=== PATIENT | male | born 1990 ===

== ENCOUNTER 2016-11-21 12:30 | Inpatient (IN) | payer OTHER ==
[2016-11-22 00:07] VITALS: BMI 53.0
--- NOTE | 2016-11-22 08:43 | CP.PCM.CON ---
History of Present Illness - History of Present Illness History of Present Illness: Full Note Dictated Severe Hypertension Obesity See Rx Dietary counselling for weight loss/low salt diet Echo to mildred DE LEON Past Patient History - Past Medical History & Family History Past Medical History?: No - Past Social History Smoking Status: Never Smoked - CARDIAC Hx Cardiac Disorders: No - PULMONARY Hx Respiratory Disorders: No - NEUROLOGICAL Hx Neurological Disorder: No - HEENT Hx HEENT Problems: No - RENAL Hx Chronic Kidney Disease: No - ENDOCRINE/METABOLIC Hx Endocrine Disorders: No - HEMATOLOGICAL/ONCOLOGICAL Hx Blood Disorders: No Hx AIDS: No Hx Human Immunodeficiency Virus (HIV): No - INTEGUMENTARY Hx Dermatological Problems: No - MUSCULOSKELETAL/RHEUMATOLOGICAL Hx Musculoskeletal Disorders: No Hx Falls: No - GASTROINTESTINAL Hx Gastrointestinal Disorders: No - GENITOURINARY/GYNECOLOGICAL Hx Genitourinary Disorders: No - PSYCHIATRIC Hx Psychophysiologic Disorder: No Hx Substance Use: No - SURGICAL HISTORY Hx Surgeries: No - ANESTHESIA Hx Anesthesia: No Meds Allergies/Adverse Reactions: Allergies Allergy/AdvReac Type Severity Reaction Status Date / Time No Known Allergies Allergy Verified 09/30/14 14:29 - Medications Medications: Current Medications Amlodipine Besylate (Norvasc) 5 mg PO DAILY DAVID Enoxaparin Sodium (Lovenox) 40 mg SC DAILY DAVID PRN Reason: Protocol Results - Vital Signs Recent Vital Signs: Last Vital Signs Temp 97.9 F 11/22/16 08:29 Pulse 80 11/22/16 08:29 Resp 20 11/22/16 08:29 BP 132/84 11/22/16 08:29 Pulse Ox 95 11/22/16 08:29 - Labs Labs: Laboratory Results - last 24 hr 11/22/16 05:40 Troponin I 0.0400
--- NOTE | 2016-11-22 09:49 | CON ---
DATE: 11/22/2016 He is hospitalized under Dr. Haskins's care in room 416, bed 2. This 26-year-old man complained of an abrupt onset of blurry vision and lightheadedness, was brought to the Emergency Room and was found to be severely hypertensive. He denies any prior knowledge of hy pertension, but knows that his father is a hypertensive and the patient has put on approximately 70 p ounds in last 3 years. He is not a smoker or a diabetic, has good effort tolerance and can walk 8-10 blocks without any difficulty and can climb a couple of flights of stairs, has no prior hospitalizat ion, has never taken medications, has never complained of any shortness of breath with exertion, has never complained of any chest pain, has never complained of any palpitations. He denies excessive sa lt loading. He denies any prior kidney-related illnesses. His father does not have renal failure or chronic kidney disease. PHYSICAL EXAMINATION: GENERAL: Shows a markedly overweight, young man, alert, awake, coherent, in no distress at the time of this examination. VITAL SIGNS: Afebrile, has a heart rate of 78 beats per minute, regular, and a blood pressure of 180 /114 mmHg. His jugular venous pressure was not elevated. EXTREMITIES: There was no edema of his lower extremities. The pedal pulses were well felt. NECK: There were no carotid bruits. ABDOMEN: There were no abdominal bruits. Soft. His liver and spleen were not palpable. HEART: The apex was not palpable. The first and second heart sounds were normal. There was no murm ur or gallop. LUNGS: There were no rales. His electrocardiogram showed sinus rhythm with a pattern of left ventricular hypertrophy. No Q-waves were detected on his electrocardiogram. The only blood test available is his troponin, which was wi thin normal limits. IMPRESSION: At this time is severe hypertension with obesity. I have explained to the patient the c onnection between hypertension and obesity and the need to lose weight. Dietary counseling will be o rdered regarding weight loss diet and low salt diet. I have started him on an SRUTHI inhibitor and hydr ochlorothiazide along with amlodipine. An echocardiogram to evaluate his left ventricular systolic f unction would be important as well as urinalysis for albumin in the urine. Amilcar Levin MD cc: [phone] TT: 11/22/2016 09:48:08 Confirmation # [id number] Dictation # [id number] en
[2016-11-22 10:56] LABS: THYROID STIMULATING HORMONE 3.98 mIU/ML (0.46-4.68)
[2016-11-22 11:06] LABS: BASO # 0.1 K/uL (0.0-0.2); BASO % 0.9 % (0.0-2.0); EOS # 0.2 K/uL (0.0-0.7); EOS % 3.1 % (0.0-4.0); HEMATOCRIT 44.1 % (35.0-51.0); LYMPH # 2.4 K/uL (1.0-4.3); LYMPH % 31.3 % (20.0-40.0); MEAN CELL VOLUME 81.4 fl (80.0-94.0); MEAN CORPUSCULAR HEMOGLOBIN 26.9 pg (27.0-31.0); MEAN CORPUSCULAR HGB CONC 33.1 g/dL (33.0-37.0); MONO # 0.5 K/uL (0.0-0.8); MONO % 6.5 % (0.0-10.0); NEUT # 4.5 K/uL (1.8-7.0); NEUT % 58.2 % (50.0-75.0); NRBC % 0.1 % (0.0-0.0); RED CELL DISTRIBUTION WIDTH 14.7 % (11.5-14.5); WHITE BLOOD COUNT 7.7 K/uL (4.8-10.8)
[2016-11-22 11:58] LABS: BLOOD UREA NITROGEN 13 mg/dl (9-20); GFR AFRICAN-AMERICAN > 60; GLUCOSE,RANDOM 104 mg/dL (75-110)
[2016-11-22 11:59] LABS: ALB/GLOB RATIO 1.3 (1.0-2.1); ALKALINE PHOSPHATASE 70 U/L (38-126); ALT/SGPT 133 U/L (21-72); AST/SGOT 98 U/L (17-59); BILIRUBIN,TOTAL 0.8 mg/dl (0.2-1.3); CALCIUM 9.4 mg/dL (8.4-10.2); CARBON DIOXIDE 28 mmol/L (22-30); CHLORIDE 104 mmol/L (98-107); POTASSIUM 3.6 MMOL/L (3.6-5.0); SODIUM 145 mmol/l (132-148); TOTAL PROTEIN 8.6 G/DL (6.3-8.2)
--- NOTE | 2016-11-22 12:06 | HP ---
CHIEF COMPLAINT: Dizziness. HISTORY OF PRESENT ILLNESS: This is a 26-year-old male, known case of morbid obesity and severe hype rtension who was to the hospital and suddenly felt dizzy and almost passed out, so went to [facility] Room and was admitted for further management. REVIEW OF SYSTEMS: Positive for dizziness and almost passing out. Review of systems otherwise negat afia for headache, chest pain, shortness of breath, nausea, vomiting, diarrhea, constipation, any new joint or extremity pain. Review of systems of all other organ systems is unremarkable. PAST MEDICAL HISTORY: Significant for morbid obesity and hypertension. PAST SURGICAL HISTORY: Unremarkable. PERSONAL HISTORY: The patient is currently a nonsmoker, nondrinker, no substance abuse. MEDICATIONS: The patient is on multiple medications, which is as per reconciliation sheet, which was reviewed in order. ALLERGIES: The patient is not allergic to any medication. FAMILY HISTORY: Noncontributory. PHYSICAL EXAMINATION: GENERAL: Well-built, well-nourished, morbidly obese 36-year-old man with a BMI of 53 in no acute dis tress. VITAL SIGNS: Temperature 97.9, pulse 80, respiration 20, blood pressure 132/84, blood pressure used to be 179/119, yesterday. HEENT: The patient is wearing glasses. No JVD, no thyromegaly, no lymphadenopathy, no nystagmus. N ormocephalic, atraumatic skull. HEART: S1, S2 normal, regular. No significant murmur, gallop or rub is heard. LUNGS: Shows good bilateral air entry. No rales or rhonchi. ABDOMEN: Soft, nontender, no organomegaly, no fluid. Bowel sounds are present. EXTREMITIES: No edema, no calf swelling, no tenderness. No acute ischemia. CENTRAL NERVOUS SYSTEM: The patient is alert, awake, oriented x 3. There is no sign of any acute gr oss focal motor or sensory neurological deficit. DIAGNOSTIC DATA: Available diagnostic data reviewed. EKG does not reveal any acute ST-T changes. Cardiology consult noted and appreciated. Telemetry monitoring does not reveal significant arrhythmi as. ADMITTING IMPRESSION: Syncope, uncontrolled severe hypertension, morbid obesity. PLAN: As ordered. Case and plan discussed with patient. Willem Haskins MD cc: [phone] TT: 11/22/2016 12:06:13 jn
[2016-11-22] MEDS: Enoxaparin 40 mg Syringe SC SCH (12:31)
--- NOTE | 2016-11-22 14:19 | CT ---
PROCEDURE: CT HEAD WITHOUT CONTRAST. HISTORY: Dizziness COMPARISON: None available. TECHNIQUE: Axial computed tomography images were obtained through the head/brain without intravenous contrast. Radiation dose: Total exam DLP = 1095.06 mGy-cm. This CT exam was performed using one or more of the following dose reduction techniques: Automated exposure control, adjustment of the mA and/or kV according to patient size, and/or use of iterative reconstruction technique. FINDINGS: HEMORRHAGE: No intracranial hemorrhage. BRAIN: No mass effect or edema. No atrophy or chronic microvascular ischemic changes. VENTRICLES: Unremarkable. No hydrocephalus. CALVARIUM: Unremarkable. PARANASAL SINUSES: Unremarkable as visualized. No significant inflammatory changes. MASTOID AIR CELLS: Unremarkable as visualized. No inflammatory changes. OTHER FINDINGS: None. IMPRESSION: Normal CT of the Head. No intracranial mass, hemorrhage or evidence of acute infarct.
--- NOTE | 2016-11-22 15:08 | CARD ---
APPROVED REPORT EXAM: Two-dimensional and M-mode echocardiogram with Doppler, color Doppler with contrast. Other Information Quality : GoodRhythm : NSR INDICATION Hypertension/HCVD Echo Enhancing Agent Indication: Endocardial border delineation Agent/Amount Used: Definity 2D DIMENSIONS IVSd1.30 (0.7-1.1cm)LVDd6.18 (3.9-5.9cm) LVOT Diameter2.73 (1.8-2.4cm)PWd1.22 (0.7-1.1cm) IVSs1.71 (0.8-1.2cm)LVDs4.89 (2.5-4.0cm) FS (%) 20.9 %PWs1.62 (0.8-1.2cm) LVEF (%)40.0 (>50%) M-Mode DIMENSIONS Left Atrium (MM)3.09 (2.5-4.0cm)IVSd1.97 (0.7-1.1cm) Aortic Root3.38 (2.2-3.7cm)LVDd5.47 (4.0-5.6cm) Aortic Cusp Exc.2.34 (1.5-2.0cm)PWd1.31 (0.7-1.1cm) IVSs1.91 cmFS (%) 11 % LVDs4.88 (2.0-3.8cm)PWs1.66 cm Mitral Valve MV E Anfpizkq44.8cm/sMV DECEL KULS768dpUE A Orapjzfe99.0cm/s MV YCW14qpU/A ratio0.8MVA (PHT)3.81cm2 TDI E/Lateral E'0.0E/Medial E'0.0 Pulmonary Valve PV Peak Qbowmiws419.1cm/s LEFT VENTRICLE The Left Ventricle is borderline dilated. There is mild to moderate concentric left ventricular hypertrophy. The systolic function is moderately impaired. Apical Hypokinesis Transmitral Doppler flow pattern is Grade I-abnormal relaxation pattern. No left ventricle thrombus noted on this study. RIGHT VENTRICLE The right ventricle is normal size. There is normal right ventricular wall thickness. The right ventricular systolic function is normal. ATRIA The left atrium size is normal. The right atrium size is normal. AORTIC VALVE The aortic valve is not well visualized. No aortic regurgitation is present. There is no aortic valvular stenosis. MITRAL VALVE The mitral valve is not well visualized. There is no mitral valve stenosis. There is no mitral valve regurgitation noted. TRICUSPID VALVE The tricuspid valve is normal in structure and function. There is no tricuspid valve regurgitation noted. PULMONIC VALVE The pulmonary valve is normal in structure and function. There is no pulmonic valvular regurgitation. GREAT VESSELS The aortic root is normal in size. The IVC was not visualized. PERICARDIAL EFFUSION The pericardium appears normal. <Conclusion> The Left Ventricle is borderline dilated. There is mild to moderate concentric left ventricular hypertrophy. The systolic function is moderately impaired. Apical Hypokinesis Transmitral Doppler flow pattern is Grade I-abnormal relaxation pattern. No left ventricle thrombus noted on this study.
--- NOTE | 2016-11-22 18:53 | CON ---
DATE: 11/22/2016 CHIEF COMPLAINT: Syncope. HISTORY OF PRESENT ILLNESS: This 26-year-old man with history of morbid obesity, hypertension, had a brupt onset of blurry vision, lightheadedness, was brought to the hospital and found to be severely h ypertensive. He denies any knowledge of prior hypertension, but father that is hypertensive. He is a nonsmoker, nondiabetic, has good effort tolerance and can walk about 8-10 blocks. He had jing vated systolic and diastolic blood pressures. Currently, his blood pressure is much better controlle d since he is on hydrochlorothiazide and Norvasc. His current blood pressure is 132/84. He is walki ng around without any difficulty. Denies any headache, any change in sense, vision, taste or smell a t this time. PAST MEDICAL HISTORY: Morbid obesity. SOCIAL HISTORY: No illicit drug use, smoking, or ETOH abuse. FAMILY HISTORY: Noncontributory. ALLERGIES: No known drug allergies. SOCIAL HISTORY: No illicit drug use, smoking, or ETOH abuse. REVIEW OF SYSTEMS: A 14-point review of systems except for the HPI. MEDICATIONS: Reviewed via the nurse's reconciliation sheet. FAMILY HISTORY: Father has hypertension. PHYSICAL EXAMINATION: VITAL SIGNS: Temperature afebrile, pulse rate of 80, blood pressure 132/84, respiratory rate 18, oxy gen 97% on room air. GENERAL: The patient is sitting up in bed in no acute distress. HEENT: Atraumatic, normocephalic. PERRLA. Extraocular muscles intact. NECK: Supple, no JVD, no adenopathy noted. LUNGS: Clear to auscultation. No adventitious sounds. HEART: S1, S2, normal rate and rhythm. No murmurs, rubs, or gallops. ABDOMEN: Soft, nontender, nondistended. Bowel sounds present. EXTREMITIES: No clubbing, no cyanosis. Peripheral pulses 2+ felt bilaterally. NEUROLOGIC: The patient is alert, oriented to person, place, month and year. Speech is fluent, with out any errors. Cranial nerves II through XII are intact. MOTOR: Moves all extremities equally. Toes are downgoing bilaterally. SENSORY: Light touch, pinprick, proprioception, vibration. DTRs are 2+ throughout and 1 at the ankl es. COORDINATION: Tgdckm-ws-kshq intact. GAIT: Normal. Romberg negative. LABORATORIES: Sodium is 145, potassium 3.6, chloride 104, carbon dioxide 20, BUN of 13, creatinine 0 .8. Random glucose of 104. B12 is 384. ASSESSMENT AND PLAN: This is a 26-year-old -[place] man morbidly obese with abrupt onset of blurry vision, lightheadedness and was found to have elevated systolic and diastolic blood pressures and found to be very severely hypertensive. His near syncope is secondary to hypertensive urgency glaser perimposed underlying morbid obesity. At this time, recommend: 1. Put him on Norvasc as well as hydrochlorothiazide along with amlodipine and recommend a low salt, low fat diet and weight reduction. He is clinically stable from a neurological standpoint. Thank you for this consult. We will sign off. Armando Leal MD cc: [phone] TT: 11/22/2016 18:53:00 Confirmation # [id number] Dictation # [id number] mn
--- NOTE | 2016-11-22 22:12 | CARD ---
APPROVED REPORT EKG Measurement Heart [id number] HI [id number] <Conclusion> Normal sinus rhythm Possible Left atrial enlargement Left ventricular hypertrophy Nonspecific T wave abnormality Prolonged QT Abnormal ECG
[2016-11-23 07:38] LABS: ALB/GLOB RATIO 1.2 (1.0-2.1); ALKALINE PHOSPHATASE 52 U/L (38-126); ALT/SGPT 119 U/L (21-72); AST/SGOT 75 U/L (17-59); BILIRUBIN,TOTAL 1.3 mg/dl (0.2-1.3); BLOOD UREA NITROGEN 15 mg/dl (9-20); CALCIUM 9.6 mg/dL (8.4-10.2); CARBON DIOXIDE 32 mmol/L (22-30); CHLORIDE 100 mmol/L (98-107); CHOLESTEROL 231 mg/dL (0-199); GFR AFRICAN-AMERICAN > 60; GLUCOSE,RANDOM 115 mg/dL (75-110); POTASSIUM 3.8 MMOL/L (3.6-5.0); SODIUM 145 mmol/l (132-148); TOTAL PROTEIN 8.7 G/DL (6.3-8.2)
[2016-11-23 07:50] LABS: MEAN CELL VOLUME 82.6 fl (80.0-94.0); MEAN CORPUSCULAR HEMOGLOBIN 27.4 pg (27.0-31.0); MEAN CORPUSCULAR HGB CONC 33.1 g/dL (33.0-37.0); RED CELL DISTRIBUTION WIDTH 14.9 % (11.5-14.5); WHITE BLOOD COUNT 9.4 K/uL (4.8-10.8)
[2016-11-23] MEDS: Enoxaparin 40 mg Syringe SC SCH (08:21)
--- NOTE | 2016-11-23 10:17 | CP.PCM.PN ---
Subjective - Date & Time of Evaluation Date of Evaluation: 11/23/16 Time of Evaluation: 10:16 - Subjective Subjective: Pt feeling better BP controlled Norvasc 10mg OD Lisinopril 20mg OD HCTZ 25mg OD Echo: Concentric hypertrophy Dilated LV EF: 50 % sl Apical hypokinesia Objective - Vital Signs/Intake and Output Vital Signs (last 24 hours): Temp Pulse Resp BP Pulse Ox 97.8 F 82 16 133/79 98 11/23/16 08:00 11/23/16 09:00 11/23/16 08:00 11/23/16 08:21 11/23/16 08:00 - Medications Medications: Current Medications Amlodipine Besylate (Norvasc) 10 mg PO DAILY [facility] Last Admin: 11/23/16 08:21 Dose: 10 mg Enoxaparin Sodium (Lovenox) 40 mg SC DAILY [facility] PRN Reason: Protocol Last Admin: 11/23/16 08:21 Dose: 40 mg Hydrochlorothiazide (Hydrodiuril) 25 mg PO DAILY [facility] Last Admin: 11/23/16 08:21 Dose: 25 mg Lisinopril (Zestril) 20 mg PO DAILY [facility] Last Admin: 11/23/16 08:20 Dose: 20 mg - Labs Labs: 11/23/16 07:00 11/23/16 07:00 Assessment and Plan (1) Uncontrolled hypertension Assessment & Plan: BP is under controlled Echo reviewed Pt may be discharged advised to follow up with Low salt diet Lose weight Status: Acute
[2016-11-23 15:46] VITALS: BP 145/99; PULSE 98; RESP 20; TEMP 98.4; O2SAT 97
--- NOTE | 2016-11-23 21:38 | DS ---
This is a young male who was visiting in the hospital and started feeling dizzy. The patient went to the Emergency Room and was admitted for dizziness. The patient was found to be having accelerated h ypertension. The patient was admitted. ____ the patient was started on antihypertensive medication, stabilized and being discharged home on medications. The patient will be followed by primary care sylvie leung and wardrobe consultant within a week. Willem Haskins MD cc: [phone] TT: 11/23/2016 21:37:19 jn
--- NOTE | 2016-11-25 08:53 | PN ---
DATE: 11/23/2016 The patient seen and examined. Interim events noted. Consults noted and appreciated. Neurology and cardiology followup and intervention noted and appreciated. The patient remains in progressive care unit on telemetry monitoring. The patient feels okay. No headache, no dizziness, no syncope, no ch est pain, no shortness of breath. PHYSICAL EXAMINATION: GENERAL: The patient is in no acute distress. VITAL SIGNS: Stable. HEART: S1, S2 normal, regular. LUNGS: Good bilateral air entry. ABDOMEN: Soft, nontender. EXTREMITIES: No edema, no calf swelling, no tenderness. No . CENTRAL NERVOUS SYSTEM: Essentially unchanged. DIAGNOSTIC DATA: Available diagnostic data . Overall, the patient is medically stable. Telemetry monitoring does not reveal significant arrhythmi a. The patient is cleared for discharge cardiology . Will discharge the patient home. T he patient will be followed by primary care physician. PLAN: As ordered. Case and plan discussed with patient. Willem Haskins MD cc: [phone] TT: 11/23/2016 18:39:32 Confirmation # [id number] Dictation # [id number] erica
== END 2016-11-23 16:55 | disposition home or self-care (01) | DRG 305 ==
LOC: H.EDERROR 12:30 → H.TEL 23:21 → INTOOBSV 23:21 → H.TEL 23:50 → OBSVTOIN 11-22 12:04
PROVIDERS: ADMIT Internal Medicine; ATTEND Internal Medicine
DX: I16.0 Hypertensive urgency (principal); Z68.43 Body mass index [BMI] 50.0-59.9, adult; E66.01 Morbid (severe) obesity due to excess calories; Z82.49 Family history of ischemic heart disease and other diseases of the circulatory system

== ENCOUNTER 2018-04-13 14:51 | Observation (INO) | payer MEDICAID, OTHER ==
[2018-04-13 14:51] VITALS: BMI 53.0
--- NOTE | 2018-04-13 15:33 | ED PDOC ---
HPI: Headache Time Seen by Provider: 04/13/18 15:07 Chief Complaint (Nursing): GI Problem Chief Complaint (Provider): Dizziness, Vomiting and Nausea History Per: Patient History/Exam Limitations: no limitations Onset/Duration Of Symptoms: Days (1) Additional Complaint(s): 28 years old male with history of hypertension presents to ER for evaluation of pressure in his head since yesterday evening that went away and came back today 2 hours prior to arrival while playing video games. Patient reports associated dizziness described as "room spinning" and states when he got up, he vomited. He reports experiencing nausea every time he gets up and blurry double vision when looking side to side that resolves spontaneously. Patient states he has been non complaint with hypertension medication for the last 2 weeks and reports he was seen here before for the same symptoms. He denies any focal weakness, numbness or difficulty of speech. PMD: non provided Past Medical History Reviewed: Historical Data, Nursing Documentation, Vital Signs Vital Signs: Last Vital Signs Temp 98.5 F 04/13/18 14:54 Pulse 78 04/13/18 14:54 Resp 20 04/13/18 14:54 BP 171/119 H 04/13/18 14:54 Pulse Ox 99 04/13/18 14:54 - Medical History PMH: HTN Denies: HIV, Chronic Kidney Disease - Surgical History Surgical History: No Surg Hx - Family History Family History: States: Diabetes, Hypertension - Social History Current smoker - smoking cessation education provided: No Alcohol: None Drugs: Denies - Home Medications Home Medications: Ambulatory Orders Medication Instructions Recorded Lisinopril [Zestril] 20 mg PO DAILY #7 tab 11/23/16 hydrALAZINE [Apresoline] 25 mg PO TID 04/13/18 - Allergies Allergies/Adverse Reactions: Allergies Allergy/AdvReac Type Severity Reaction Status Date / Time strawberry Allergy RASH Verified 11/23/16 12:31 Review of Systems ROS Statement: Except As Marked, All Systems Reviewed And Found Negative Neurological: Positive for: Headache (pressure), Dizziness (Room spinning). Negative for: Weakness, Numbness, Change in Speech Physical Exam - Reviewed Nursing Documentation Reviewed: Yes Vital Signs Reviewed: Yes - Physical Exam Appears: Positive for: Non-toxic, In Acute Distress (Mild) Head Exam: Positive for: ATRAUMATIC, NORMOCEPHALIC Skin: Positive for: Warm, Dry Eye Exam: Positive for: EOMI, PERRL, Other (Nystagmus with rightward gaze. Intact ocular muscles) ENT: Negative for: Pharyngeal Erythema, Tonsillar Exudate Neck: Positive for: Painless ROM, Supple Cardiovascular/Chest: Positive for: Regular Rate, Rhythm. Negative for: Murmur Respiratory: Positive for: Normal Breath Sounds. Negative for: Respiratory Distress Gastrointestinal/Abdominal: Positive for: Normal Exam, Soft, Other (Morbidly obese). Negative for: Tenderness Back: Positive for: Normal Inspection. Negative for: Decreased ROM Extremity: Positive for: Normal ROM. Negative for: Deformity Neurologic/Psych: Positive for: Alert, Oriented (x3), Mood/Affect (normal). Negative for: Motor/Sensory Deficits, Aphasia, Facial Droop - Laboratory Results Result Diagrams: 04/13/18 16:58 04/13/18 16:58 - ECG O2 Sat by Pulse Oximetry: 99 (RA) Pulse Ox Interpretation: Normal Medical Decision Making Medical Decision Making: Time: 1507 Initial Impression: Vertigo. Differential includes but not limited to hypertensive encephalopathy, migraine, electrolyte abnormality, VBI and cerebral stroke. Initial Plan: --Head w/o contrast CT --EKG --BTN --CMP --Magnesium --Phosphorous --Troponin I --Urine dipstick --CBC --PTT/PT --Ativert 50 mg PO --Zofran 8 mg IV Accession No. : [id number] Patient Name / ID : SYDNEY WISDOM / [id number] Exam Date : 04/13/2018 16:35:55 ( Approved ) Study Comment : Sex / Age : M / 28Y Creator : Luis Miguel Santacruz MD Dictator : Luis Miguel Santacruz MD Live Out Nanny : Senior Net Developer Architect : Luis Miguel Santacruz MD Approver2 : Report Date : 04/13/2018 17:20:27 My Comment : Date of service: 04/13/2018 PROCEDURE: CT HEAD WITHOUT CONTRAST. HISTORY: hypertension COMPARISON: 11/21/2016. TECHNIQUE: Axial computed tomography images were obtained through the head/brain without intravenous contrast. Supplemental Coronal and Sagittal projections created and reviewed. Radiation dose: Total exam DLP = 894.86 mGy-cm. This CT exam was performed using one or more of the following dose reduction techniques: Automated exposure control, adjustment of the mA and/or kV according to patient size, and/or use of iterative reconstruction technique. FINDINGS: HEMORRHAGE: No intracranial hemorrhage. BRAIN: No mass effect or edema. No atrophy or chronic microvascular ischemic changes. VENTRICLES: Unremarkable. No hydrocephalus. CALVARIUM: Unremarkable. PARANASAL SINUSES: Unremarkable as visualized. No significant inflammatory changes. MASTOID AIR CELLS: Unremarkable as visualized. No inflammatory changes. OTHER FINDINGS: None. IMPRESSION: No acute intracranial abnormalities. No significant findings to account for the clinical presentation. No significant interval change compared to the prior examination(s). --On reevaluation, patient has persistent vertigo and is unable to tolerate sitting up or standing up. Labs unremarkable, patient to be hospitalized for intractable vertigo discussed with Dr. Renee, medical service. Discussed case with Dr. Engel, neurology on ca ll, who recommended additional Valium and CTA head and neck. Scribe Attestation: Documented by Vickie Walker, acting as a scribe for Kayla Ayers MD. Provider Scribe Attestation: All medical record entries made by the Scribe were at my direction and personally dictated by me. I have reviewed the chart and agree that the record accurately reflects my personal performance of the history, physical exam, medical decision making, and the department course for this patient. I have also personally directed, reviewed, and agree with the discharge instructions and disposition. Disposition - Disposition
[2018-04-13 17:08] LABS: BASO # 0.1 K/uL (0.0-0.2); BASO % 0.7 % (0.0-2.0); EOS # 0.1 K/uL (0.0-0.7); HEMOGLOBIN 15.3 g/dL (12.0-18.0); LYMPH # 1.3 K/uL (1.0-4.3); MEAN CELL VOLUME 81.1 fl (80.0-94.0); MEAN CORPUSCULAR HEMOGLOBIN 26.8 pg (27.0-31.0); MEAN PLATELET VOLUME 10.6 fl (7.2-11.7); MONO # 0.4 K/uL (0.0-0.8); MONO % 4.1 % (0.0-10.0); NEUT # 8.2 K/uL (1.8-7.0); NEUT % 81.2 % (50.0-75.0); RBC 5.72 Mil/uL (4.40-5.90); RED CELL DISTRIBUTION WIDTH 14.8 % (11.5-14.5); WHITE BLOOD COUNT 10.1 K/uL (4.8-10.8)
--- NOTE | 2018-04-13 17:23 | CT ---
Date of service: 04/13/2018 PROCEDURE: CT HEAD WITHOUT CONTRAST. HISTORY: hypertension COMPARISON: 11/21/2016. TECHNIQUE: Axial computed tomography images were obtained through the head/brain without intravenous contrast. Supplemental Coronal and Sagittal projections created and reviewed. Radiation dose: Total exam DLP = 894.86 mGy-cm. This CT exam was performed using one or more of the following dose reduction techniques: Automated exposure control, adjustment of the mA and/or kV according to patient size, and/or use of iterative reconstruction technique. FINDINGS: HEMORRHAGE: No intracranial hemorrhage. BRAIN: No mass effect or edema. No atrophy or chronic microvascular ischemic changes. VENTRICLES: Unremarkable. No hydrocephalus. CALVARIUM: Unremarkable. PARANASAL SINUSES: Unremarkable as visualized. No significant inflammatory changes. MASTOID AIR CELLS: Unremarkable as visualized. No inflammatory changes. OTHER FINDINGS: None. IMPRESSION: No acute intracranial abnormalities. No significant findings to account for the clinical presentation. No significant interval change compared to the prior examination(s).
[2018-04-13 17:26] LABS: PROTHROMBIN TIME 11.4 Seconds (9.8-13.1)
[2018-04-13 17:29] LABS: PARTIAL THROMBOPLASTIN TIME 28.7 Seconds (25.6-37.1)
[2018-04-13 17:48] LABS: ALB/GLOB RATIO 1.1 (1.0-2.1); ALBUMIN 4.4 g/dL (3.5-5.0); ALT/SGPT 101 U/L (21-72); AST/SGOT 71 U/L (17-59); B-TYPE NATRIURETIC PEPTIDE 552 pg/ml (0-450); BLOOD UREA NITROGEN 12 mg/dl (9-20); CALCIUM 9.3 mg/dL (8.4-10.2); GFR NON-AFRICAN AMERICAN > 60
[2018-04-13] MEDS ORDERED: Enalaprilat 2.5 MG/2 ML IVP STA (17:58)
[2018-04-13] MEDS ORDERED: EnalaprilAT 1.25 mg/ml Inj IVP STA (18:00)
[2018-04-13] MEDS ORDERED: Iodixanol 320 MG/ML 100 ML BOTTLE IV ONE (21:46)
[2018-04-13] MEDS ORDERED: Sodium Chloride 0.9% 50 ML IV ONE (21:46)
[2018-04-14] MEDS ORDERED: Dextrose 5%/0.45% NS 1,000 ML IV SCH (00:15)
[2018-04-14 05:29] LABS: MEAN CELL VOLUME 81.5 fl (80.0-94.0); MEAN CORPUSCULAR HEMOGLOBIN 27.3 pg (27.0-31.0); MEAN CORPUSCULAR HGB CONC 33.4 g/dL (33.0-37.0); RBC 5.51 Mil/uL (4.40-5.90); RED CELL DISTRIBUTION WIDTH 14.5 % (11.5-14.5); WHITE BLOOD COUNT 9.2 K/uL (4.8-10.8)
[2018-04-14 06:12] LABS: ALB/GLOB RATIO 1.1 (1.0-2.1); ALBUMIN 4.2 g/dL (3.5-5.0); ALT/SGPT 83 U/L (21-72); AST/SGOT 53 U/L (17-59); BLOOD UREA NITROGEN 11 mg/dl (9-20); CALCIUM 9.2 mg/dL (8.4-10.2); GFR NON-AFRICAN AMERICAN > 60
--- NOTE | 2018-04-14 07:02 | CARD ---
APPROVED REPORT Date of service: 04/13/2018 EKG Measurement Heart [id number] KS 176P24 [id number] <Conclusion> Normal sinus rhythm with sinus arrhythmia Left ventricular hypertrophy with QRS widening Nonspecific T wave abnormality Abnormal ECG
--- NOTE | 2018-04-14 09:05 | CP.PCM.HP ---
History of Present Illness - History of Present Illness History of Present Illness: 28 YR OLD OBESE MALE WHO WAS ADMITTED BECAUSE OF HEADACHES AND DIZZINESS X SEVERAL DAYS.HE HAD STOPPED TAKING HIS BLOOD PRESSURE MEDS X SEVERAL MONTHS BECAUSE HE FELT WELL.DENIES VISUAL DISTURBANCES OR CHEST PAINS HX OF HYPERTENSION FAMILY [id number] Present on Admission - Present on Admission Any Indicators Present on Admission: No Past Patient History - Past Medical History & Family History Past Medical History?: No - Past Social History Smoking Status: Never Smoked - CARDIAC Hx Cardiac Disorders: Yes Hx Hypertension: Yes - PULMONARY Hx Respiratory Disorders: No - NEUROLOGICAL Hx Neurological Disorder: No - HEENT Hx HEENT Problems: No - RENAL Hx Chronic Kidney Disease: No - ENDOCRINE/METABOLIC Hx Endocrine Disorders: No - HEMATOLOGICAL/ONCOLOGICAL Hx Blood Disorders: No Hx Human Immunodeficiency Virus (HIV): No - INTEGUMENTARY Hx Dermatological Problems: No - MUSCULOSKELETAL/RHEUMATOLOGICAL Hx Musculoskeletal Disorders: No Hx Falls: No - GASTROINTESTINAL Hx Gastrointestinal Disorders: No - GENITOURINARY/GYNECOLOGICAL Hx Genitourinary Disorders: No - PSYCHIATRIC Hx Psychophysiologic Disorder: No Hx Substance Use: No - SURGICAL HISTORY Hx Surgeries: No - ANESTHESIA Hx Anesthesia: No Meds Allergies/Adverse Reactions: Allergies Allergy/AdvReac Type Severity Reaction Status Date / Time strawberry Allergy RASH Verified 11/23/16 12:31 Physical Exam - Constitutional Appears: No Acute Distress - Head Exam Head Exam: ATRAUMATIC, NORMAL INSPECTION, NORMOCEPHALIC - Eye Exam Eye Exam: EOMI, Normal appearance, PERRL Pupil Exam: NORMAL ACCOMODATION, PERRL - ENT Exam ENT Exam: Mucous Membranes Moist, Normal Exam - Neck Exam Neck exam: Positive for: Normal Inspection - Respiratory Exam Respiratory Exam: Clear to Auscultation Bilateral, NORMAL BREATHING PATTERN - Cardiovascular Exam Cardiovascular Exam: REGULAR RHYTHM - GI/Abdominal Exam GI & Abdominal Exam: Normal Bowel Sounds, Soft. absent: Tenderness - Rectal Exam Rectal Exam: NORMAL INSPECTION - Extremities Exam Extremities exam: Positive for: normal inspection - Back Exam Back exam: NORMAL INSPECTION - Neurological Exam Neurological exam: Alert, CN II-XII Intact, Normal Gait, Oriented x3, Reflexes Normal - Psychiatric Exam Psychiatric exam: Normal Affect, Normal Mood - Skin Skin Exam: Dry, Intact, Normal Color, Warm Results - Vital Signs Recent Vital Signs: Last Vital Signs Temp 97.7 F 04/14/18 08:21 Pulse 76 04/14/18 08:21 Resp 20 04/14/18 08:21 BP 144/88 04/14/18 08:21 Pulse Ox 97 04/14/18 08:21 - Labs Result Diagrams: 04/14/18 04:15 04/14/18 04:15 Labs: Laboratory Results - last 24 hr 04/13/18 04/13/18 04/13/18 15:02 16:58 16:58 WBC 10.1 RBC 5.72 Hgb 15.3 Hct 46.4 MCV 81.1 MCH 26.8 L MCHC 33.0 RDW 14.8 H Plt Count 181 MPV 10.6 Neut % (Auto) 81.2 H Lymph % (Auto) 13.0 L [place] % (Auto) 4.1 Eos % (Auto) 1.0 Baso % (Auto) 0.7 Neut # (Auto) 8.2 H Lymph # (Auto) 1.3 [place] # (Auto) 0.4 Eos # (Auto) 0.1 Baso # (Auto) 0.1 PT INR APTT Sodium 143 Potassium 3.8 Chloride 101 Carbon Dioxide 32 H Anion Gap 14 BUN 12 Creatinine 0.8 Est GFR ( Amer) > 60 Est GFR (Non-Af Amer) > 60 POC Glucose (mg/dL) 123 H Random Glucose 102 Calcium 9.3 Phosphorus 2.8 Magnesium 1.9 Total Bilirubin 0.8 AST 71 H ALT 101 H Alkaline Phosphatase 52 Troponin I 0.0420 NT-Pro-B Natriuret Pep 552 H Total Protein 8.3 H Albumin 4.4 Globulin 3.9 Albumin/Globulin Ratio 1.1 04/13/18 04/14/18 04/14/18 16:58 04:15 04:15 WBC 9.2 RBC 5.51 Hgb 15.0 Hct 44.9 MCV 81.5 MCH 27.3 MCHC 33.4 RDW 14.5 Plt Count 195 MPV Neut % (Auto) Lymph % (Auto) [place] % (Auto) Eos % (Auto) Baso % (Auto) Neut # (Auto) Lymph # (Auto) [place] # (Auto) Eos # (Auto) Baso # (Auto) PT 11.4 INR 1.0 APTT 28.7 Sodium 140 Potassium 3.9 Chloride 101 Carbon Dioxide 32 H Anion Gap 11 BUN 11 Creatinine 1.0 Est GFR ( Amer) > 60 Est GFR (Non-Af Amer) > 60 POC Glucose (mg/dL) Random Glucose 115 H Calcium 9.2 Phosphorus Magnesium Total Bilirubin 1.0 AST 53 ALT 83 H Alkaline Phosphatase 44 Troponin I NT-Pro-B Natriuret Pep Total Protein 8.1 Albumin 4.2 Globulin 3.9 Albumin/Globulin Ratio 1.1 Assessment & Plan - Assessment and Plan (Free Text) Assessment: UNCONTROLLED HYPERTENSION HEADACHES AND DIZZINESS DUE TO HTN OBESITY Plan: RESTART HTN MEDS NEUROLOGY EVAL ADVISED COMPLIANCE WITH MEDS AND DIET - Date & Time Date: 04/14/18 Time: 09:07
--- NOTE | 2018-04-14 09:09 | RAD ---
Date of service: 04/13/2018 HISTORY: dizzy COMPARISON: No prior. FINDINGS: LUNGS: No active pulmonary disease. PLEURA: No significant pleural effusion identified, no pneumothorax apparent. CARDIOVASCULAR: Cardiac silhouette may be technically magnified though cardiomegaly is not excluded. No pulmonary vascular congestion evident. OSSEOUS STRUCTURES: No significant abnormalities. VISUALIZED UPPER ABDOMEN: Normal. OTHER FINDINGS: None. IMPRESSION: No acute pulmonary disease. Cardiomegaly not excluded. No pulmonary vascular congestion.
[2018-04-14 09:28] LABS: HDL CHOLESTEROL 39 MG/DL (30-70)
[2018-04-14 09:39] LABS: LDL CHOLESTEROL 147 mg/dL (0-129)
--- NOTE | 2018-04-14 11:21 | CARD ---
APPROVED REPORT Date of service: 04/14/2018 EKG Measurement Heart [id number] <Conclusion> Normal sinus rhythm Left ventricular hypertrophy with QRS widening Nonspecific T wave abnormality Prolonged QT Abnormal ECG
--- NOTE | 2018-04-14 11:35 | CT ---
Date of service: 04/13/2018 PROCEDURE: CT Angiography of the Brain and Neck. HISTORY: intractable vertigo COMPARISON: None available. TECHNIQUE: CT angiography of the intracranial and neck arteries was performed. Coronal and sagittal maximum intensity projection reformatted images were generated. Contrast Dose: Visipaque 320, 95 cc Radiation dose:Total exam DLP = 561.92 mGy-cm. This CT exam was performed using one or more of the following dose reduction techniques: Automated exposure control, adjustment of the mA and/or kV according to patient size, and/or use of iterative reconstruction technique. FINDINGS: INTERNAL CEREBRAL ARTERIES: Unremarkable. The skull base, petrous, cavernous and supraclinoid segments are bilaterally widely patent. ANTERIOR CEREBRAL ARTERIES: Unremarkable. A1 and A2 segments are widely patent. Smaller distal branches unremarkable, as visualized. MIDDLE CEREBRAL ARTERIES: Unremarkable. M1 and M2 segments are widely patent. Perisylvian branches grossly symmetric. POSTERIOR CIRCULATION: Basilar Artery: Unremarkable. Distal Vertebral Arteries: Unremarkable. Posterior Cerebral Arteries: Unremarkable. Posterior Inferior Cerebellar Arteries: Unremarkable. NECK CTA: Common Carotid arteries: The bilateral common carotid appear widely patent from mid to distal cervical segments to their bifurcations with no significant stenosis appreciated. Gross artifact from obese body habitus and the shoulders obscures their origins and proximal thirds bilaterally. Internal Carotid arteries: No significant stenosis is appreciated throughout the cervical internal carotid artery segments bilaterally and there is no evidence of dissection either. External Carotid arteries: Appear unremarkable bilaterally. Vertebral arteries: The bilateral vertebral arteries appear normal in caliber from there mid to distal cervical segments. No significant stenosis or definite pattern of dissection. ANEURYSM/ VASCULAR MALFORMATIONS: None. OTHER FINDINGS: None. IMPRESSION: Unremarkable CT Angiography of the Brain. Evaluation of the neck reveals no significant bilateral cervical ICA or mid to distal vertebral artery/common carotid artery stenosis, however, the proximal segments of the bilateral vertebral arteries as well as common carotid arteries, including their origins, are obscured by body habitus and bony shoulder related artifacts. MRI angiography with gadolinium may be considered if clinically warranted.
--- NOTE | 2018-04-14 13:58 | CP.PCM.CON ---
History of Present Illness - History of Present Illness History of Present Illness: Mr. Andres is a 28-year-old man, referred to me by Dr. Renee, who has past medical history of obesity and hypertension. He stopped taking his anti- hypertensive medications due to non-compliance, several months ago. He has been having severe headaches and intractable vertigo/dizziness for the last two weeks. He presented to the ED and was hypertensive. He was started on antihypertensives and today feels well again. CTA of the head/neck was done to rule out VBI, and was normal. Review of Systems - Constitutional Constitutional: absent: As Per HPI, Anorexia, Chills, Daytime Sleepiness, Excessive Sweating, Fatigue, Fever, Frequent Falls, Headache, Increased Appetite, Lethargy, Malaise, Night Sweats, Snoring, Sleep Apnea, Weight Gain, Weight Loss, Weakness, Other - EENT Eyes: absent: As Per HPI, Blind Spots, Blurred Vision, Change in Vision, Decreased Night Vision, Diplopia, Discharge, Dry Eye, Exophthalmos, Floaters, Irritation, Itchy Eyes, Loss of Peripheral Vision, Pain, Photophobia, Requires Corrective Lenses, Sees Flashes, Spots in Vision, Tunnel Vision, Other Visual Disturbances, Loss of Vision, Other Ears: absent: As Per HPI, Decreased Hearing, Ear Discharge, Ear Pain, Tinnitus, Abnormal Hearing, Disequilibrium, Dizziness, Other Nose/Mouth/Throat: absent: As Per HPI, Epistaxis, Nasal Congestion, Nasal Discharge, Nasal Obstruction, Nasal Trauma, Nose Pain, Post Nasal Drip, Sinus Pain, Sinus Pressure, Bleeding Gums, Change in Voice, Dental Pain, Dry Mouth, Dysphagia, Halitosis, Hoarsness, Lip Swelling, Mouth Lesions, Mouth Pain, Odynophagia, Sore Throat, Throat Swelling, Tongue Swelling, Facial Pain, Neck Pain, Neck Mass, Other - Cardiovascular Cardiovascular: absent: As Per HPI, Acrocyanosis, Chest Pain, Chest Pain at Rest, Chest Pain with Activity, Claudication, Diaphoresis, Dyspnea, Dyspnea on Exertion, Edema, Irregular Heart Rhythm, Pain Radiating to Arm/Neck/Jaw, Leg Edema, Leg Ulcers, Lightheadedness, Orthopnea, Palpitations, Paroxysmal Nocturnal Dyspnea, Pedal Edema, Radiating Pain, Rapid Heart Rate, Slow Heart Rate, Syncope, Other - Respiratory Respiratory: absent: As Per HPI, Cough, Dyspnea, Hemoptysis, Dyspnea on Exertion, Wheezing, Snoring, Stridor, Pain on Inspiration, Chest Congestion, Excessive Mucous Production, Change in Mucous Color, Pain with Coughing, Other - Gastrointestinal Gastrointestinal: absent: As Per HPI, Abdominal Pain, Belching, Bloating, Change in Bowel Habits, Change in Stool Character, Coffee Ground Emesis, Constipation, Cramping, Diarrhea, Dyspepsia, Dysphagia, Early Satiety, Excessive Flatus, Fecal Incontinence, Heartburn, Hematemesis, Hematochezia, Loose Stools, Melena, Naus ea, Odynophagia, Temesmus, Vomiting, Other - Genitourinary Genitourinary: absent: As Per HPI, Change in Urinary Stream, Difficulty Urinating, Dysuria, Flank Pain, Hematuria, Pyuria, Nocturia, Urinary Incontinence, Urinary Frequency, Urinary Hesitance, Urinary Urgency, Voiding Freq/Small Amts, Freq UTI, Hx Renal/Bladder Calculi, Hx /Renal Surgery, Bladder Distension, Other - Musculoskeletal Musculoskeletal: absent: As Per HPI, Abnormal Gait, Arthralgias, Atrophy, Back Pain, Deformity, Joint Swelling, Limited Range of Motion, Loss of Height, Muscle Cramps, Muscle Weakness, Myalgias, Neck Pain, Numbness, Radiating Pain into Limb, Stiffness, Tingling, Other - Integumentary Integumentary: absent: As Per HPI, Acne, Alopecia, Bleeding Lesions, Change in Hair, Change in Nails, Change in Pigmentation, Changing Lesions, Dry Skin, Erythema, Furuncle, Hirsutism, Lesions, New Lesions, Non-Healing Lesions, Photosensitivity, Pruritus, Rash, Skin Pain, Skin Ulcer, Sores, Striae, Swe lling, Unusual Bruising, Wounds, Jaundice, Other - Neurological Neurological: As Per HPI - Psychiatric Psychiatric: absent: As Per HPI, Abnormal Sleep Pattern, Anhedonia, Anxiety, Auditory Hallucinations, Behavioral Changes, Change in Appetite, Change in Libido, Confusion, Depression, Difficulty Concentrating, Hallucinations, Homicidal Ideation, Hopelessness, Irritability, Memory Loss, Mood Swings, Panic Attacks, Paranoia, Suicidal Ideation, Visual Hallucinations, Tactile Hallucinations, Other - Endocrine Endocrine: absent: As Per HPI, Change in Body Appearance, Change in Libido, Cold Intolorance, Deepening of Voice, Excessive Sweating, Fatigue, Flushing, Heat Intolorance, Increase in Ring/Shoe/Hat Size, Palpitations, Polydipsia, Polyphagia, Polyuria, Other Past Patient History - Past Medical History & Family History Past Medical History?: No - Past Social History Smoking Status: Never Smoked - CARDIAC Hx Cardiac Disorders: Yes Hx Hypertension: Yes - PULMONARY Hx Respiratory Disorders: No - NEUROLOGICAL Hx Neurological Disorder: No - HEENT Hx HEENT Problems: No - RENAL Hx Chronic Kidney Disease: No - ENDOCRINE/METABOLIC Hx Endocrine Disorders: No - HEMATOLOGICAL/ONCOLOGICAL Hx Blood Disorders: No Hx Human Immunodeficiency Virus (HIV): No - INTEGUMENTARY Hx Dermatological Problems: No - MUSCULOSKELETAL/RHEUMATOLOGICAL Hx Musculoskeletal Disorders: No Hx Falls: No - GASTROINTESTINAL Hx Gastrointestinal Disorders: No - GENITOURINARY/GYNECOLOGICAL Hx Genitourinary Disorders: No - PSYCHIATRIC Hx Psychophysiologic Disorder: No Hx Substance Use: No - SURGICAL HISTORY Hx Surgeries: No - ANESTHESIA Hx Anesthesia: No Meds Allergies/Adverse Reactions: Allergies Allergy/AdvReac Type Severity Reaction Status Date / Time strawberry Allergy RASH Verified 11/23/16 12:31 - Medications Medications: Current Medications Hydralazine HCl (Apresoline) 25 mg PO TID [facility] Last Admin: 04/14/18 12:48 Dose: 25 mg Lisinopril (Zestril) 20 mg PO DAILY [facility] Last Admin: 04/14/18 10:06 Dose: 20 mg Physical Exam - Constitutional Appears: Well - Head Exam Head Exam: ATRAUMATIC, NORMAL INSPECTION, NORMOCEPHALIC - Eye Exam Eye Exam: EOMI, Normal appearance, PERRL - ENT Exam ENT Exam: Mucous Membranes Moist, Normal Exam - Neck Exam Neck exam: Positive for: Normal Inspection - Respiratory Exam Respiratory Exam: Clear to Auscultation Bilateral, NORMAL BREATHING PATTERN - Cardiovascular Exam Cardiovascular Exam: REGULAR RHYTHM - GI/Abdominal Exam GI & Abdominal Exam: Normal Bowel Sounds, Soft. absent: Tenderness - Rectal Exam Rectal Exam: Deferred - Extremities Exam Extremities exam: Positive for: normal inspection - Back Exam Back exam: NORMAL INSPECTION - Neurological Exam Neurological exam: Alert, CN II-XII Intact, Normal Gait, Oriented x3, Reflexes Normal - Psychiatric Exam Psychiatric exam: Normal Affect, Normal Mood - Skin Skin Exam: Dry, Intact, Normal Color, Warm Results - Vital Signs Recent Vital Signs: Last Vital Signs Temp 98.2 F 04/14/18 12:38 Pulse 80 04/14/18 12:48 Resp 20 04/14/18 12:38 BP 137/89 04/14/18 12:48 Pulse Ox 98 04/14/18 12:38 - Labs Result Diagrams: 04/14/18 04:15 04/14/18 04:15 Labs: Laboratory Results - last 24 hr 04/13/18 04/13/18 04/13/18 15:02 16:58 16:58 WBC 10.1 RBC 5.72 Hgb 15.3 Hct 46.4 MCV 81.1 MCH 26.8 L MCHC 33.0 RDW 14.8 H Plt Count 181 MPV 10.6 Neut % (Auto) 81.2 H Lymph % (Auto) 13.0 L [place] % (Auto) 4.1 Eos % (Auto) 1.0 Baso % (Auto) 0.7 Neut # (Auto) 8.2 H Lymph # (Auto) 1.3 [place] # (Auto) 0.4 Eos # (Auto) 0.1 Baso # (Auto) 0.1 PT INR APTT Sodium 143 Potassium 3.8 Chloride 101 Carbon Dioxide 32 H Anion Gap 14 BUN 12 Creatinine 0.8 Est GFR ( Amer) > 60 Est GFR (Non-Af Amer) > 60 POC Glucose (mg/dL) 123 H Random Glucose 102 Hemoglobin A1c Calcium 9.3 Phosphorus 2.8 Magnesium 1.9 Total Bilirubin 0.8 AST 71 H ALT 101 H Alkaline Phosphatase 52 Troponin I 0.0420 NT-Pro-B Natriuret Pep 552 H Total Protein 8.3 H Albumin 4.4 Globulin 3.9 Albumin/Globulin Ratio 1.1 Triglycerides Cholesterol LDL Cholesterol Direct HDL Cholesterol 04/13/18 04/14/18 04/14/18 16:58 04:15 04:15 WBC 9.2 RBC 5.51 Hgb 15.0 Hct 44.9 MCV 81.5 MCH 27.3 MCHC 33.4 RDW 14.5 Plt Count 195 MPV Neut % (Auto) Lymph % (Auto) [place] % (Auto) Eos % (Auto) Baso % (Auto) Neut # (Auto) Lymph # (Auto) [place] # (Auto) Eos # (Auto) Baso # (Auto) PT 11.4 INR 1.0 APTT 28.7 Sodium 140 Potassium 3.9 Chloride 101 Carbon Dioxide 32 H Anion Gap 11 BUN 11 Creatinine 1.0 Est GFR ( Amer) > 60 Est GFR (Non-Af Amer) > 60 POC Glucose (mg/dL) Random Glucose 115 H Hemoglobin A1c Calcium 9.2 Phosphorus Magnesium Total Bilirubin 1.0 AST 53 ALT 83 H Alkaline Phosphatase 44 Troponin I NT-Pro-B Natriuret Pep Total Protein 8.1 Albumin 4.2 Globulin 3.9 Albumin/Globulin Ratio 1.1 Triglycerides Cholesterol LDL Cholesterol Direct HDL Cholesterol 04/14/18 04/14/18 04:15 09:17 WBC RBC Hgb Hct MCV MCH MCHC RDW Plt Count MPV Neut % (Auto) Lymph % (Auto) [place] % (Auto) Eos % (Auto) Baso % (Auto) Neut # (Auto) Lymph # (Auto) [place] # (Auto) Eos # (Auto) Baso # (Auto) PT INR APTT Sodium Potassium Chloride Carbon Dioxide Anion Gap BUN Creatinine Est GFR ( Amer) Est GFR (Non-Af Amer) POC Glucose (mg/dL) Random Glucose Hemoglobin A1c 5.5 Calcium Phosphorus Magnesium Total Bilirubin AST ALT Alkaline Phosphatase Troponin I NT-Pro-B Natriuret Pep Total Protein Albumin Globulin Albumin/Globulin Ratio Triglycerides 105 D Cholesterol 209 H LDL Cholesterol Direct 147 H HDL Cholesterol 39 Assessment & Plan (1) Uncontrolled hypertension Assessment and Plan: This is the likely result of his vertigo as well. Now that his BP is controlled, he appears to be well. I recommend continued and consistent follow- up with primary care Status: Acute (2) Vertigo Assessment and Plan: Likely due to uncontrolled hypertension. May use Valium 5 mg or Meclizine 25 mg PRN Q12 hours. Currently, he does not need it. Thank you for this consultation. Status: Acute
[2018-04-15 09:35] VITALS: O2SAT 96
--- NOTE | 2018-04-15 10:03 | CP.PCM.DIS ---
Provider - Provider Date of Admission: 04/13/18 19:05 Attending physician: Pawan Esteban MD Time Spent in preparation of Discharge (in minutes): 35 Diagnosis - Discharge Diagnosis (1) Vertigo Status: Acute (2) Uncontrolled hypertension Status: Acute Hospital Course - Lab Results Lab Results: Most Recent Lab Values WBC 9.2 K/uL (4.8-10.8) 04/14/18 04:15 RBC 5.51 Mil/uL (4.40-5.90) 04/14/18 04:15 Hgb 15.0 g/dL (12.0-18.0) 04/14/18 04:15 Hct 44.9 % (35.0-51.0) 04/14/18 04:15 MCV 81.5 fl (80.0-94.0) 04/14/18 04:15 MCH 27.3 pg (27.0-31.0) 04/14/18 04:15 MCHC 33.4 g/dL (33.0-37.0) 04/14/18 04:15 RDW 14.5 % (11.5-14.5) 04/14/18 04:15 Plt Count 195 K/uL (130-400) 04/14/18 04:15 MPV 10.6 fl (7.2-11.7) 04/13/18 16:58 Neut % (Auto) 81.2 % (50.0-75.0) H 04/13/18 16:58 Lymph % (Auto) 13.0 % (20.0-40.0) L 04/13/18 16:58 [place] % (Auto) 4.1 % (0.0-10.0) 04/13/18 16:58 Eos % (Auto) 1.0 % (0.0-4.0) 04/13/18 16:58 Baso % (Auto) 0.7 % (0.0-2.0) 04/13/18 16:58 Neut # (Auto) 8.2 K/uL (1.8-7.0) H 04/13/18 16:58 Lymph # (Auto) 1.3 K/uL (1.0-4.3) 04/13/18 16:58 [place] # (Auto) 0.4 K/uL (0.0-0.8) 04/13/18 16:58 Eos # (Auto) 0.1 K/uL (0.0-0.7) 04/13/18 16:58 Baso # (Auto) 0.1 K/uL (0.0-0.2) 04/13/18 16:58 PT 11.4 Seconds (9.8-13.1) 04/13/18 16:58 INR 1.0 04/13/18 16:58 APTT 28.7 Seconds (25.6-37.1) 04/13/18 16:58 Sodium 140 mmol/l (132-148) 04/14/18 04:15 Potassium 3.9 MMOL/L (3.6-5.0) 04/14/18 04:15 Chloride 101 mmol/L (98-107) 04/14/18 04:15 Carbon Dioxide 32 mmol/L (22-30) H 04/14/18 04:15 Anion Gap 11 (10-20) 04/14/18 04:15 BUN 11 mg/dl (9-20) 04/14/18 04:15 Creatinine 1.0 mg/dl (0.8-1.5) 04/14/18 04:15 Est GFR ( Amer) > 60 04/14/18 04:15 Est GFR (Non-Af Amer) > 60 04/14/18 04:15 POC Glucose (mg/dL) 116 mg/dL (65-110) H 04/15/18 06:06 Random Glucose 115 mg/dL (75-110) H 04/14/18 04:15 Hemoglobin A1c 5.5 % (4.2-6.5) 04/14/18 04:15 Calcium 9.2 mg/dL (8.4-10.2) 04/14/18 04:15 Phosphorus 2.8 mg/dl (2.5-4.5) 04/13/18 16:58 Magnesium 1.9 MG/DL (1.6-2.3) 04/13/18 16:58 Total Bilirubin 1.0 mg/dl (0.2-1.3) 04/14/18 04:15 AST 53 U/L (17-59) 04/14/18 04:15 ALT 83 U/L (21-72) H 04/14/18 04:15 Alkaline Phosphatase 44 U/L (38-126) 04/14/18 04:15 Troponin I 0.0420 ng/mL (0.00-0.120) 04/13/18 16:58 NT-Pro-B Natriuret Pep 552 pg/ml (0-450) H 04/13/18 16:58 Total Protein 8.1 G/DL (6.3-8.2) 04/14/18 04:15 Albumin 4.2 g/dL (3.5-5.0) 04/14/18 04:15 Globulin 3.9 gm/dL (2.2-3.9) 04/14/18 04:15 Albumin/Globulin Ratio 1.1 (1.0-2.1) 04/14/18 04:15 Triglycerides 105 mg/DL (0-149) D 04/14/18 09:17 Cholesterol 209 mg/dL (0-199) H 04/14/18 09:17 LDL Cholesterol Direct 147 mg/dL (0-129) H 04/14/18 09:17 HDL Cholesterol 39 MG/DL (30-70) 04/14/18 09:17 - Hospital Course Hospital Course: FEELS BETTER HYPERTENSION CONTROLLED ON MEDS VERTIGO RESOLVED Discharge Exam - Head Exam Head Exam: ATRAUMATIC, NORMAL INSPECTION, NORMOCEPHALIC - Eye Exam Eye Exam: EOMI, Normal appearance, PERRL Pupil Exam: NORMAL ACCOMODATION, PERRL - GI/Abdominal Exam GI & Abdominal Exam: Normal Bowel Sounds - Rectal Exam Rectal Exam: NORMAL INSPECTION - Neurological Exam Neurological exam: Alert, CN II-XII Intact, Normal Gait, Oriented x3, Reflexes Normal - Psychiatric Exam Psychiatric exam: Normal Affect, Normal Mood - Skin Skin Exam: Dry, Intact, Normal Color, Warm Discharge Plan - Follow Up Plan Condition: FAIR Disposition: HOME/ ROUTINE Patient education suggested?: Yes Additional Instructions: DISCHARGE ON CURRENT MEDS FOLLOW UP WITH DR ESTEBAN IN 1 WEEK
[2018-04-15 13:30] VITALS: BP 135/92; PULSE 84; RESP 18; TEMP 98.2
== END 2018-04-15 14:02 | disposition home or self-care (01) ==
LOC: H.ER 14:51 → INTOOBSV 19:05 → H.ERHOLD 19:05 → H.TEL 23:13
PROVIDERS: ADMIT Internal Medicine Pulmonary Disease; ATTEND Internal Medicine Pulmonary Disease
DX: I10 Essential (primary) hypertension (principal); R42 Dizziness and giddiness; E66.9 Obesity, unspecified; Z68.43 Body mass index [BMI] 50.0-59.9, adult; R11.2 Nausea with vomiting, unspecified; Z82.49 Family history of ischemic heart disease and other diseases of the circulatory system; Z91.14 Patient's other noncompliance with medication regimen
CPT/HCPCS: 36415; 70450; 70496; 70498; 71045; 80053; 80061; 82948; 83036; 83735; 83880; 84100; 84484; 85025; 85027; 85610; 85730; 93005; 99285; G0378; J2405; J7042; Q9967